=== PATIENT | male | born 1985 | race Caucasian/White ===

== ENCOUNTER 2021-12-08 23:23 | Emergency (ER) | payer SELFPAY ==
[2021-12-09] MEDS ORDERED: Acetaminophen 500 MG TAB ONE (00:06)
== END 2021-12-09 00:21 | disposition left against medical advice (07) ==
LOC: CSHERS 23:23
DX: R05.9 Cough, unspecified (principal); F17.210 Nicotine dependence, cigarettes, uncomplicated
CPT/HCPCS: 99283

== ENCOUNTER 2022-01-12 08:29 | Emergency (ER) | payer SELFPAY | END 2022-01-12 09:40 | disposition home or self-care (01) | LOC: CSHERS 08:29 | DX: M25.562 Pain in left knee (principal); F17.200 Nicotine dependence, unspecified, uncomplicated ==

== ENCOUNTER 2024-03-17 21:21 | Emergency (ER) | payer OTHER | END 2024-03-17 22:23 | disposition left against medical advice (07) | LOC: CSHERS 21:21 | DX: Z53.21 Procedure and treatment not carried out due to patient leaving prior to being seen by health care provider (principal) ==